=== PATIENT | male | born 2000 | race Two or more races ===

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

== ENCOUNTER 2020-02-12 02:04 | Emergency (ER) | payer SELFPAY ==
[~2020-02-12] VITALS: Ht 170.2 cm; Wt 74.8 kg
[~2020-02-12 02:04] MED LIST changes: -ALBUTEROL SULF 2.5 MG/0.5ML(0.5%) NEB SOLN NEB ONE; -IPRATROPIUM BROM 0.5 MG/2.5ML INH SOL NEB ONE; -PRED15SO23 PO; +PRED15SY PO; -cefTRIAXone SOD 1,000 MG VL IM ONE; -methylPREDNISolone SOD SUCC 125 MG/2 ML VL IM ONE
[2020-02-12 02:57] LABS: Basophils # (auto) 0 10 ^3/uL (0-0.2); Basophils % (auto) 0.6 % (0.0-2.0); Eosinophils # (auto) 0.1 10 ^3/uL (0-0.8); Eosinophils % (auto) 1.5 % (0.0-7.0); Hemoglobin 16.7 g/dL (13.5-17.5); Lymphocytes # (auto) 1.6 10 ^3/uL (0.4-5.4); Lymphocytes % (auto) 23.1 % (10.0-50.0); Mean Corpuscular Hemoglobin 30.4 pg (28.0-32.0); Mean Corpuscular Hgb Conc. 34.8 g/dL (32.0-36.0); Mean Corpuscular Volume 87.4 fL (80.0-100.0); Monocytes # (auto) 1.2 10 ^3/uL (0-1.3); Monocytes % (auto) 17.5 % (0.0-12.0); Neutrophils % (auto) 57.3 % (37.0-80.0); Nucleated Red Blood Cells % 0.1 %; Platelet Count (auto) 210 10^3/uL (140-450); Red Cell Distribution Width 12.7 % (11.8-14.3)
[2020-02-12 03:16] LABS: INR 1.08 (0.9-1.15); Partial Thromboplastin Time 27.9 sec (23.0-31.2)
[2020-02-12 03:18] LABS: Albumin 4.3 g/dL (3.4-5.0); Anion Gap 4 (5-15); Blood Urea Nitrogen 6 mg/dL (7-18); Calcium 9.3 mg/dL (8.5-10.1); Carbon Dioxide 31 mmol/L (21-32); Chloride 103 mmol/L (98-107); Glucose 149 mg/dL (74-106); Magnesium 2.5 mg/dL (1.6-2.6); Potassium 3.8 mmol/L (3.5-5.1); Sodium 138 mmol/L (136-145)
[2020-02-12 03:23] LABS: Alanine Aminotransferase 19 U/L (16-61); Alkaline Phosphatase 129 U/L (45-117); Aspartate Aminotransferase 17 U/L (15-37); BUN/Creatinine Ratio 4.9; Bilirubin, Total 0.5 mg/dL (0.2-1.0); Creatine Kinase IFCC 120 U/L (39-308); GFR African American 97 mL/min; GFR Non-African American 81 mL/min; Total Protein 7.9 g/dL (6.4-8.2)
[2020-02-12 06:00] VITALS: BP 126/74
== END 2020-02-12 06:58 | disposition home or self-care (01) ==
LOC: ER 02:06
DX: U07.1 COVID-19 (principal); J44.1 Chronic obstructive pulmonary disease with (acute) exacerbation; J45.901 Unspecified asthma with (acute) exacerbation; J01.00 Acute maxillary sinusitis, unspecified
CPT/HCPCS: 36415; 71045; 80053; 82550; 82728; 83735; 83880; 84484; 85025; 85379; 85610; 85730; 87426